=== PATIENT | male | born 1965 | race Caucasian/White ===

== ENCOUNTER 2016-05-08 14:32 | Emergency (ER) | payer MEDICARE ==
--- NOTE | 2016-05-08 14:52 | ER Document Report ---
ED Medical Screen (RME) - General Stated Complaint: LEFT SHOULDER PAIN Notes: 50 yo male c/o left shoulder pain x several months. progressively worsening. strained shoulder yesterday lifting trailer off the hitch. mild numbness and tingling to fingers. pt has hx/o HTN. did not take meds today Physical Exam - Vital signs Vitals: Temp Pulse Resp BP Pulse Ox 98.0 F 57 L 16 181/115 H 98 05/08/16 14:38 05/08/16 14:38 05/08/16 14:38 05/08/16 14:38 05/08/16 14:38 Course - Vital Signs Vital signs: Temp Pulse Resp BP Pulse Ox 98.0 F 57 L 16 181/115 H 98 05/08/16 14:38 05/08/16 14:38 05/08/16 14:38 05/08/16 14:38 05/08/16 14:38
--- NOTE | 2016-05-08 17:25 | ER Document Report ---
HPI - HPI Patient complains to provider of: chronic left shoulder paiin Onset: Yesterday Onset/Duration: Worse Quality of pain: Achy Pain Level: 4 Context: 50 yo male with chronic left shoulder pain (inside) made it worse lifting trailer oneil a hitch yesterday. - DERM Skin Color: Normal Past Medical History - General Information source: Patient - Social History Smoking Status: Never Smoker Frequency of alcohol use: Occasional Drug Abuse: None Lives with: Family Family History: Reviewed & Not Pertinent Patient has suicidal ideation: No Patient has homicidal ideation: No - Medical History Medical History: Negative Renal/ Medical History: Denies: Hx Peritoneal Dialysis Surgical Hx: Negative Vertical Provider Document - CONSTITUTIONAL Agree With Documented VS: Yes Exam Limitations: No Limitations General Appearance: No Apparent Distress - INFECTION CONTROL TRAVEL OUTSIDE OF THE [place] IN LAST 30 DAYS: No - HEENT HEENT: Normocephalic - NECK Neck: Supple - RESPIRATORY Respiratory: Breath Sounds Normal, No Respiratory Distress O2 Sat by Pulse Oximetry: 98 - CARDIOVASCULAR Cardiovascular: Regular Rate, Regular Rhythm - MUSCULOSKELETAL/EXTREMETIES Musculoskeletal/Extremeties: HIRAL, FROM Notes: pt states the pain is deep inside the joint, no place that I can touch. - NEURO Level of Consciousness: Awake, Alert Motor/Sensory: No Motor Deficit, No Sensory Deficit - DERM Integumentary: Warm, Dry, No Rash Course - Re-evaluation Re-evalutation: 05/08/16 xray is negative. - Vital Signs Vital signs: Temp Pulse Resp BP Pulse Ox 98.0 F 57 L 16 181/115 H 98 05/08/16 14:38 05/08/16 14:38 05/08/16 14:38 05/08/16 14:38 05/08/16 14:38 Discharge - Discharge Clinical Impression: left shoulder injury, chronic left shoulder pain, Elevated blood pressure reading Condition: Good Disposition: HOME, SELF-CARE Instructions: Anti-Inflammatory Medication ([facility]), High Blood Pressure ([facility]), Shoulder Injury ([facility]), Temporary Sling ([facility]), Ultram ([facility]), Family Physicians / Practices Additional Instructions: see the orthopedic doctor for follow up to er if worse see family practice doctor for blood pressure recheck in a week Prescriptions: Ibuprofen [Motrin 800 mg Tablet] 800 mg PO Q8HP PRN #30 tablet PRN Reason: Tramadol HCl [Ultram 50 mg Tablet] 50 mg PO ASDIR PRN #20 tablet PRN Reason: Forms: Return to Work Referrals: CHRIS MARINELLI MD [ACTIVE STAFF] - Follow up as needed
[2016-05-08 18:06] VITALS: BP 173/113
== END 2016-05-08 17:50 | disposition home or self-care (01) ==
LOC: ER 14:32
DX: G89.29 Other chronic pain (principal); M25.512 Pain in left shoulder; R03.0 Elevated blood-pressure reading, without diagnosis of hypertension; W22.09XA Striking against other stationary object, initial encounter
CPT/HCPCS: 99283

== ENCOUNTER 2017-02-22 12:34 | Observation (INO) | payer MEDICARE ==
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
[2017-02-22 13:22] LABS: ABSOLUTE EOSINOPHILS # (AUTO) 0.1 10^3/uL (0.0-0.6); ABSOLUTE MONOCYTES (AUTO) 0.4 10^3/uL (0.1-1.4); ABSOLUTE NEUT (AUTO) 3.6 10^3/uL (1.7-8.2); BASOPHILS % (AUTO) 0.4 % (0-2); EOSINOPHILS % (AUTO) 1.5 % (0-6); HEMATOCRIT 39.7 % (37.9-51.0); HEMOGLOBIN 14.1 g/dL (13.5-17.0); HGB HCT DIFFERENCE 2.6; MEAN CORPUSCULAR HEMOGLOBIN 31.1 pg (27.0-33.4); MEAN CORPUSCULAR HGB CONC 35.6 g/dL (32.0-36.0); MEAN CORPUSCULAR VOLUME 87 fl (80-97); MONOCYTES % (AUTO) 8.5 % (3-13); RED BLOOD COUNT 4.55 10^6/uL (4.35-5.55); RED CELL DISTRIBUTION WIDTH 13.6 % (11.5-14.0); SEGMENTED NEUTROPHILS % (AUTO) 70.6 % (42-78); WHITE BLOOD COUNT 5.1 10^3/uL (4.0-10.5)
[2017-02-22] MEDS ORDERED: LIDOCAINE 1% INJ-PF (10 MG/ML) 30 ML SDV INJ ONE (13:36)
[2017-02-22 13:41] LABS: ALANINE AMINOTRANSFERASE 58 U/L (21-72); ALKALINE PHOSPHATASE 99 U/L (38-126); ANION GAP 11 (5-19); ASPARTATE AMINO TRANSFERASE 33 U/L (17-59); BILIRUBIN,DIRECT 0.5 mg/dL (0.0-0.4); BILIRUBIN,TOTAL 1.6 mg/dL (0.2-1.3); BLOOD UREA NITROGEN 19 mg/dL (7-20); CALCIUM 9.8 mg/dL (8.4-10.2); CARBON DIOXIDE 27 mmol/L (22-30); CHLORIDE 103 mmol/L (98-107); CREATINE KINASE 163 U/L (55-170); CREATININE RESULT 1.11 mg/dL (0.52-1.25); GLUCOSE 108 mg/dL (75-110); POTASSIUM 4.2 mmol/L (3.6-5.0); SODIUM 140.9 mmol/L (137-145); TOTAL PROTEIN 6.1 g/dL (6.3-8.2)
[2017-02-22 13:52] LABS: CREATINE KINASE MB 1.54 ng/mL (<4.55)
[2017-02-22 13:54] LABS: TROPONIN I < 0.012 ng/mL
[2017-02-22] MEDS: RINGERS SOLUTION,LACTATED 1,000 ML IV PRN ×2 (13:55→13:56)
[2017-02-22 13:56] LABS: LITHIUM 1.1 mEq/L (0.6-1.2)
[2017-02-22 14:06] LABS: ALCOHOL < 10 mg/dL (NONE DETECTED)
[2017-02-22 14:35] LABS: APPEARANCE,URINE CLEAR; BILIRUBIN,URINE NEGATIVE (NEGATIVE); GLUCOSE, URINE 50 mg/dL (NEGATIVE); KETONES,URINE NEGATIVE (NEGATIVE); LEUKOCYTE ESTERASE,URINE NEGATIVE (NEGATIVE); NITRITE,URINE NEGATIVE (NEGATIVE); PROTEIN,URINE NEGATIVE (NEGATIVE)
--- NOTE | 2017-02-22 14:38 | RADIOLOGY REPORT (SQ) ---
EXAM DESCRIPTION: CT HEAD WITHOUT COMPLETED DATE/TIME: 02/22/2017 2:29 pm REASON FOR STUDY: Syncope and fell and hit back of right head COMPARISON: None. TECHNIQUE: Axial images acquired through the brain without intravenous contrast. Images reviewed wi th bone, brain and subdural windows. Images stored on PACS. All CT scanners at this facility use dose modulation, iterative reconstruction, and/or weight based d osing when appropriate to reduce radiation dose to as low as reasonably achievable (ALARA). [facility]: Dose Right [facility]: CareDose [facility]: Dose Right [facility]: Teradose 4D [facility]: [email or web address] RADIATION DOSE: 64.6 mGy. LIMITATIONS: Motion artifact FINDINGS: VENTRICLES: Normal size and contour. CEREBRUM: No masses. No hemorrhage. No midline shift. No evidence for acute infarction. Normal gra y/white matter differentiation. No areas of low density in the white matter. CEREBELLUM: No masses. No hemorrhage. No alteration of density. No evidence for acute infarction. EXTRAAXIAL SPACES: No fluid collections. No masses. ORBITS AND GLOBE: No intra- or extraconal masses. Normal contour of globe without masses. CALVARIUM: No fracture. PARANASAL SINUSES: No fluid or mucosal thickening. SOFT TISSUES: No mass or hematoma. OTHER: No other significant finding. IMPRESSION: Motion artifact. Limited negative study EVIDENCE OF ACUTE STROKE: NO. COMMENT: Quality ID # 436: Final reports with documentation of one or more dose reduction techniques (e.g., Automated exposure control, adjustment of the mA and/or kV according to patient size, use of iterative reconstruction technique) TECHNICAL DOCUMENTATION: JOB ID: [id number] [employer]- All Rights Reserved
[2017-02-22 14:52] LABS: URINE BARBITURATES SCREEN NEGATIVE; URINE METHADONE SCREEN NEGATIVE; URINE OPIATES LOW NEGATIVE; URINE PHENCYCLIDINE SCREEN NEGATIVE
--- NOTE | 2017-02-22 15:30 | RADIOLOGY REPORT (SQ) ---
EXAM DESCRIPTION: CTA CHEST COMPLETED DATE/TIME: 02/22/2017 2:38 pm REASON FOR STUDY: Syncopal episode, Hx stable aortic aneurysm COMPARISON: None. TECHNIQUE: CT scan of the chest performed using helical scanning technique with dynamic intravenous contrast injection. Images reviewed with lung, soft tissue and bone windows. Reconstructed coronal and sagittal MPR images reviewed. Additional 3 dimensional post-processing performed to develop Maximal Intensity Projection images (CA P). All images stored on PACS. All CT scanners at this facility use dose modulation, iterative reconstruction, and/or weight based d osing when appropriate to reduce radiation dose to as low as reasonably achievable (ALARA). [facility]: Dose Right [facility]: CareDose [facility]: Dose Right [facility]: Teradose 4D [facility]: [employer] CONTRAST TYPE AND DOSE: 87 mL Isovue 370- low osmolar. Contrast bolus optimized for the pulmonary arteries. Suboptimal opacification of the aorta. RENAL FUNCTION: BUN 19 creatinine 1.11. RADIATION DOSE: . LIMITATIONS: None. FINDINGS: LUNGS AND PLEURA: No masses, infiltrates, pneumothorax. No pleural effusions, calcificati ons. AORTA AND GREAT VESSELS: The ascending thoracic aorta measures 4.3 cm. Contrast bolus not optimized for the aorta. HEART: No pericardial effusion. No significant coronary artery calcifications. PULMONARY ARTERIES: No emboli visualized in the main pulmonary arteries or the segmental branches. HILAR AND MEDIASTINAL STRUCTURES: No identified masses or abnormal nodes. HARDWARE: None in the chest. UPPER ABDOMEN: No significant findings. Possible splenomegaly, although the spleen is not entirely i levon. Limited exam. THYROID AND OTHER SOFT TISSUES: No masses. No adenopathy. BONES: No acute or significant finding. 3D MIPS: Confirm above findings. OTHER: No other significant finding. IMPRESSION: 1. NORMAL CTA OF THE CHEST. NO PULMONARY EMBOLI. 2. 4.3 CM ASCENDING THORACIC AORTIC ANEURYSM. NO EVIDENCE OF DISSECTION ALTHOUGH SUBOPTIMAL CONTRAST OPACIFICATION. 3. POSSIBLE SPLENOMEGALY. COMMENT: Quality ID # [id number]: Final reports with documentation of one or more dose reduction techniques (e.g., Automated exposure control, adjustment of the mA and/or kV according to patient size, use of iterative reconstruction technique) TECHNICAL DOCUMENTATION: JOB ID: [id number]- All Rights Reserved
[2017-02-22] MEDS ORDERED: ONDANSETRON HCL INJ/PF 4 MG/2 ML SDV IV PRN (16:14)
[2017-02-22] MEDS ORDERED: RINGERS SOLUTION,LACTATED 1,000 ML IV PRN (16:14)
[2017-02-22] MEDS ORDERED: MAGNESIUM HYDROXIDE SUSP 30 ML UDCUP PO PRN (16:14)
[2017-02-22] MEDS: SIMVASTATIN 40 MG TABLET PO SCH (17:27)
[2017-02-22] MEDS: ACETAMINOPHEN 325 MG TABLET PO PRN (20:38)
[2017-02-22] MEDS ORDERED: ZIPRASIDONE HCL 40 MG CAPSULE PO ONE ×2 (21:33→22:31)
[2017-02-22] MEDS ORDERED: LITHIUM CARBONATE 300 MG CAPSULE ONE (21:34)
[2017-02-22] MEDS: LITHIUM CARBONATE 300 MG CAPSULE PO SCH (21:59)
[2017-02-22] MEDS: TRAZODONE HCL 50 MG TABLET PO SCH (22:00)
[2017-02-22] MEDS: LAMOTRIGINE 100 MG TABLET PO SCH (22:00)
[2017-02-22] MEDS: ZIPRASIDONE HCL 40 MG CAPSULE PO SCH (23:17)
[2017-02-23] MEDS: LANSOPRAZOLE 30 MG TAB.RAP.DR PO SCH (06:18)
--- NOTE | 2017-02-23 09:02 | EKG REPORT ---
SEVERITY:- ABNORMAL ECG - SINUS BRADYCARDIA REPOL ABNRM SUGGESTS ISCHEMIA, ANT-LAT LEADS : Confirmed by: Efrem Murray MD 23-Feb-2017 09:01:57
--- NOTE | 2017-02-23 09:20 | PDOC H&P ---
History of Present Illness Admission Date/PCP: 02/22/17 17:00 Patient complains of: Fainting History of Present Illness: AMELIA JACOB is a 51 year old male with history of HTN, CAD status post 3 stendt 5 years ago, AAA, smoking, bipolar disease who was out biking riding today when he states that he did not feel well. Patient states he stood up and felt dizzy. He state down and felt better. He stood up again and became nauseated and thought he was going to vomit. He walk over in between some cars to vomiting and passed out. Patient injured his head in the process and required stitches. Patient denied and chest pain or SOB when this happened. Patient denied any bouts of vomiting or diarrhea. He does not drink alcohol, soda or coffee. He has not been in warm places. Patient states something like this happened about 10 years ago when he was switched for depakote to lithium. Patient states that he psych medications were increased a week ago. In the ED patient was found to be hypotensive and was given boluses. CT scan did not show anything acute. [place] level was ordered. Past Medical History Cardiac Medical History: Reports: Coronary Artery Disease, Myocardial Infarction , Hyperlipidema, Hypertension, Other - History of a stable aortic aneurysm Neurological Medical History: Denies: Migraine, Seizures Endocrine Medical History: Denies: Diabetes Mellitus Type 1, Diabetes Mellitus Type 2 Musculoskeltal Medical History: Reports: Gout Psychiatric Medical History: Reports: Bipolar Disorder, Depression Past Surgical History Past Surgical History: Reports: Coronary Stent Social History Information Source: Patient Smoking Status: Current Every Day Smoker Cigarettes Packs Per Day: 1 Last Time Smoked: 02/22/2017 Frequency of Alcohol Use: None Hx Recreational Drug Use: No Drugs: None, Marijuana Hx Prescription Drug Abuse: No - Advance Directive Resuscitation Status: Full Code Family History Family History: CAD Parental Family History Reviewed: No Children Family History Reviewed: No Sibling(s) Family History Reviewed.: No Medication/Allergy Home Medications: Allopurinol [Zyloprim] 300 mg PO DAILY 02/22/17 Aspirin [Aspirin] 81 mg PO DAILY 02/22/17 Cholecalciferol (Vitamin D3) [Vitamin D3 400 Unit Tablet] 400 unit PO DAILY 05/10 Dicyclomine HCl 20 mg PO Q8H PRN 02/22/17 Hydroxyzine Pamoate 50 mg PO Q4H PRN 02/22/17 Lamotrigine [Lamotrigine] 150 mg PO BID 02/22/17 Lisinopril [Lisinopril] 40 mg PO DAILY 02/22/17 [place] Carbonate 600 mg PO BID 02/22/17 Metoprolol Succinate 25 mg PO DAILY 02/22/17 Omeprazole 40 mg PO DAILY 02/22/17 Sertraline HCl 100 mg PO DAILY 02/22/17 Simvastatin 40 mg PO QPM 02/22/17 Trazodone HCl 100 mg PO QPM 02/22/17 Vitamin E 400 unit PO DAILY 02/22/17 Ziprasidone HCl [Ziprasidone HCl] 40 mg PO BID 02/22/17 Allergies/Adverse Reactions: Penicillins Allergy (Verified 02/22/17 12:58) Review of Systems Constitutional: ABSENT: chills, fever(s), weight gain, weight loss Eyes: ABSENT: visual disturbances Ears: ABSENT: hearing changes Cardiovascular: ABSENT: chest pain, dyspnea on exertion, edema, orthropnea, palpitations Respiratory: ABSENT: cough, hemoptysis Gastrointestinal: ABSENT: abdominal pain, constipation, diarrhea, hematemesis, hematochezia, nausea, vomiting Genitourinary: ABSENT: dysuria, hematuria Musculoskeletal: ABSENT: joint swelling Integumentary: ABSENT: rash, wounds Neurological: PRESENT: syncope. ABSENT: abnormal gait, abnormal speech, confusion, dizziness, focal weakness Psychiatric: ABSENT: anxiety, depression, homidical ideation, suicidal ideation Endocrine: ABSENT: cold intolerance, heat intolerance, polydipsia, polyuria Hematologic/Lymphatic: ABSENT: easy bleeding, easy bruising Physical Exam Vital Signs: Temp Pulse Resp BP Pulse Ox 96.8 F L 46 L 18 80/43 L 98 02/23/17 04:00 02/23/17 07:00 02/23/17 04:00 02/23/17 04:00 02/23/17 04:00 Intake & Output 02/22/17 02/23/17 02/24/17 06:59 06:59 06:59 Intake Total 980 Balance 980 Weight 101.9 kg General appearance: PRESENT: no acute distress, well-developed, well-nourished Head exam: PRESENT: normocephalic, other - dressing on scalp Eye exam: PRESENT: conjunctiva pink, EOMI, PERRLA. ABSENT: scleral icterus Ear exam: PRESENT: normal external ear exam Mouth exam: PRESENT: moist, tongue midline Neck exam: ABSENT: carotid bruit, JVD, lymphadenopathy, thyromegaly Respiratory exam: PRESENT: clear to auscultation alma delia. ABSENT: rales, rhonchi, wheezes Cardiovascular exam: PRESENT: RRR. ABSENT: diastolic murmur, rubs, systolic murmur Pulses: PRESENT: normal dorsalis pedis pul Vascular exam: PRESENT: normal capillary refill GI/Abdominal exam: PRESENT: normal bowel sounds, soft. ABSENT: distended, guarding, mass, organolmegaly, rebound, tenderness Rectal exam: PRESENT: deferred Extremities exam: PRESENT: full ROM. ABSENT: calf tenderness, clubbing, pedal edema Neurological exam: PRESENT: alert, awake, oriented to person, oriented to place , oriented to time, oriented to situation, CN II-XII grossly intact. ABSENT: motor sensory deficit Psychiatric exam: PRESENT: appropriate affect, normal mood. ABSENT: homicidal ideation, suicidal ideation Skin exam: PRESENT: dry, intact, warm. ABSENT: cyanosis, rash Results Impressions: Chest/Abdomen CTA 02/22/17 13:31 IMPRESSION: 1. NORMAL CTA OF THE CHEST. NO PULMONARY EMBOLI. 2. 4.3 CM ASCENDING THORACIC AORTIC ANEURYSM. NO EVIDENCE OF DISSECTION ALTHOUGH SUBOPTIMAL CONTRAST OPACIFICATION. 3. POSSIBLE SPLENOMEGALY. Head CT 02/22/17 13:31 IMPRESSION: Motion artifact. Limited negative study EVIDENCE OF ACUTE STROKE: NO. Assessment & Plan - Diagnosis (1) Syncope Qualifiers: Syncope type: vasovagal syncope Qualified Code(s): R55 - Syncope and collapse Is this a current diagnosis for this admission?: Yes Plan: Most likely due to hypotension and or side effects of psychiatric medications. Both lithium and zoloft and cause fainting. Both can cause hypotension and bradycardia. Patient states that his zoloft was increase last week. If patient much be on this medication then he may need to start florinef to prevent symptomatic hypotension. Will continue IV fluids and check orthostatics. No abnormality on CT head. No seizure like activity noted by bystanders. (2) Hypotension Qualifiers: Hypotension type: hypotension due to drug Qualified Code(s): I95.2 - Hypotension due to drugs Is this a current diagnosis for this admission?: Yes Plan: Patient on zoloft (increased last week), lithium, metoprolol and lisinopril which can all cause hypotension. Will hold all bp medication, hydrate and monitor. Patient may need to started on florinef if symptoms persist and his psych medications cannot be adjusted. (3) Bradycardia Is this a current diagnosis for this admission?: Yes Plan: Can be due to metoprolol and the use of lithium and zoloft. Paitent metoprolol being held as patient bp are in the 40s at times. (4) CAD (coronary artery disease) Qualifiers: Coronary Disease-Associated Artery/Lesion type: [place] artery Is this a current diagnosis for this admission?: Yes Plan: Continue aspirin. Hold beta kaushik due to bradycardia. (5) Laceration of scalp Qualifiers: Encounter type: initial encounter Qualified Code(s): S01.01XA - Laceration without foreign body of scalp, initial encounter Is this a current diagnosis for this admission?: Yes Plan: As a result of a fall. Should be able to remove sutures in 10 days. - Time Time Spent: 30 to 50 Minutes Anticipated discharge: Home Within: within 48 hours - Inpatient Certification Medical Necessity: Need For IV Fluids
[2017-02-23] MEDS: ALLOPURINOL 300 MG TABLET PO SCH (11:47)
[2017-02-23] MEDS: ASPIRIN 81 MG TABLET, CHEWABLE PO SCH (11:47)
[2017-02-23] MEDS: LAMOTRIGINE 100 MG TABLET PO SCH ×2 (11:48→21:55)
[2017-02-23] MEDS: CHOLECALCIFEROL (D3) 400 UNIT TABLET PO SCH (11:48)
[2017-02-23] MEDS: SERTRALINE HCL 50 MG TABLET PO SCH (11:49)
[2017-02-23] MEDS: LITHIUM CARBONATE 300 MG CAPSULE PO SCH ×2 (11:49→21:55)
[2017-02-23] MEDS: VITAMIN E (DL, ACETATE) 400 UNIT CAPSULE PO SCH (11:50)
[2017-02-23] MEDS: ZIPRASIDONE HCL 40 MG CAPSULE PO SCH (11:51)
--- NOTE | 2017-02-23 16:10 | PDOC PROGRESS REPORT ---
Subjective Progress Note for:: 02/23/17 Subjective:: Pt states that he is feeling much better. Nursing states that pt's sister reports that his Geodon dose was increased from 20 mg to 40 mg. Pt states that that is true. Reason For Visit: SYNCOPE SCALP LACERATION Physical Exam Vital Signs: Temp Pulse Resp BP Pulse Ox 97.9 F 59 L 16 129/70 H 99 02/23/17 11:58 02/23/17 14:00 02/23/17 11:58 02/23/17 11:58 02/23/17 11:58 Intake & Output 02/22/17 02/23/17 02/24/17 06:59 06:59 06:59 Intake Total 980 Balance 980 Weight 101.9 kg General appearance: PRESENT: no acute distress, well-developed, well-nourished Head exam: PRESENT: atraumatic, normocephalic Eye exam: PRESENT: conjunctiva pink, EOMI, PERRLA. ABSENT: scleral icterus Ear exam: PRESENT: normal external ear exam Mouth exam: PRESENT: moist, tongue midline Neck exam: ABSENT: carotid bruit, JVD, lymphadenopathy, thyromegaly Respiratory exam: PRESENT: clear to auscultation alma delia. ABSENT: rales, rhonchi, wheezes Cardiovascular exam: PRESENT: RRR. ABSENT: diastolic murmur, rubs, systolic murmur Pulses: PRESENT: normal dorsalis pedis pul Vascular exam: PRESENT: normal capillary refill GI/Abdominal exam: PRESENT: normal bowel sounds, soft. ABSENT: distended, guarding, mass, organolmegaly, rebound, tenderness Rectal exam: PRESENT: deferred Extremities exam: PRESENT: full ROM. ABSENT: calf tenderness, clubbing, pedal edema Neurological exam: PRESENT: alert, awake, oriented to person, oriented to place , oriented to time, oriented to situation, CN II-XII grossly intact. ABSENT: motor sensory deficit Psychiatric exam: PRESENT: appropriate affect, normal mood. ABSENT: homicidal ideation, suicidal ideation Skin exam: PRESENT: dry, intact, warm. ABSENT: cyanosis, rash Results Impressions: Chest/Abdomen CTA 02/22/17 13:31 IMPRESSION: 1. NORMAL CTA OF THE CHEST. NO PULMONARY EMBOLI. 2. 4.3 CM ASCENDING THORACIC AORTIC ANEURYSM. NO EVIDENCE OF DISSECTION ALTHOUGH SUBOPTIMAL CONTRAST OPACIFICATION. 3. POSSIBLE SPLENOMEGALY. Head CT 02/22/17 13:31 IMPRESSION: Motion artifact. Limited negative study EVIDENCE OF ACUTE STROKE: NO. Assessment & Plan - Diagnosis (1) Syncope Qualifiers: Syncope type: vasovagal syncope Qualified Code(s): R55 - Syncope and collapse Is this a current diagnosis for this admission?: Yes Plan: Most likely due to Hypotension related to BP medications and Psych medications: Will continue IVFs. Pt has been up ambulating in the hallway. Will continue to monitor. (2) Bradycardia Is this a current diagnosis for this admission?: Yes Plan: Will continue to monitor. Metoprolol discontinued. (3) CAD (coronary artery disease) Qualifiers: Coronary Disease-Associated Artery/Lesion type: [place] artery Is this a current diagnosis for this admission?: Yes Plan: Will continue ASA. (4) Hypotension Qualifiers: Hypotension type: hypotension due to drug Qualified Code(s): I95.2 - Hypotension due to drugs Is this a current diagnosis for this admission?: Yes Plan: Secondary to Blood pressure medication and psych medication: Will continue to monitor. (5) Laceration of scalp Qualifiers: Encounter type: initial encounter Qualified Code(s): S01.01XA - Laceration without foreign body of scalp, initial encounter Is this a current diagnosis for this admission?: Yes Plan: Sutures removal after 10 days. (6) Bipolar 1 disorder Is this a current diagnosis for this admission?: Yes Plan: Will have mental health come to evaluate pt's medications. - Time Time Spent with patient: 15-24 minutes
[2017-02-23] MEDS: SIMVASTATIN 40 MG TABLET PO SCH (18:01)
[2017-02-23] MEDS: TRAZODONE HCL 50 MG TABLET PO SCH (21:54)
[2017-02-23] MEDS: RINGERS SOLUTION,LACTATED 1,000 ML IV PRN (21:57)
[2017-02-24 04:56] LABS: ABSOLUTE EOSINOPHILS # (AUTO) 0.2 10^3/uL (0.0-0.6); ABSOLUTE LYMPHOCYTES (AUTO) 1.7 10^3/uL (0.5-4.7); ABSOLUTE MONOCYTES (AUTO) 0.4 10^3/uL (0.1-1.4); BASOPHILS % (AUTO) 0.7 % (0-2); EOSINOPHILS % (AUTO) 2.7 % (0-6); HEMOGLOBIN 13.4 g/dL (13.5-17.0); HGB HCT DIFFERENCE 2.2; LYMPHOCYTES % (AUTO) 27.4 % (13-45); MEAN CORPUSCULAR HGB CONC 35.3 g/dL (32.0-36.0); MEAN CORPUSCULAR VOLUME 88 fl (80-97); MONOCYTES % (AUTO) 6.2 % (3-13); RED BLOOD COUNT 4.32 10^6/uL (4.35-5.55); RED CELL DISTRIBUTION WIDTH 13.7 % (11.5-14.0); WHITE BLOOD COUNT 6.4 10^3/uL (4.0-10.5)
[2017-02-24 05:12] LABS: ANION GAP 8 (5-19); BLOOD UREA NITROGEN 16 mg/dL (7-20); CARBON DIOXIDE 26 mmol/L (22-30); CHLORIDE 107 mmol/L (98-107); CREATININE RESULT 0.99 mg/dL (0.52-1.25); GLUCOSE 97 mg/dL (75-110); POTASSIUM 3.9 mmol/L (3.6-5.0); SODIUM 140.7 mmol/L (137-145)
[2017-02-24] MEDS: LANSOPRAZOLE 30 MG TAB.RAP.DR PO SCH (05:27)
[2017-02-24] MEDS: ACETAMINOPHEN 325 MG TABLET PO PRN (05:29)
[2017-02-24] MEDS: LAMOTRIGINE 100 MG TABLET PO SCH ×2 (09:55→21:58)
[2017-02-24] MEDS: ALLOPURINOL 300 MG TABLET PO SCH (09:55)
[2017-02-24] MEDS: VITAMIN E (DL, ACETATE) 400 UNIT CAPSULE PO SCH (09:56)
[2017-02-24] MEDS: SERTRALINE HCL 50 MG TABLET PO SCH (09:56)
[2017-02-24] MEDS: CHOLECALCIFEROL (D3) 400 UNIT TABLET PO SCH (09:56)
[2017-02-24] MEDS: ASPIRIN 81 MG TABLET, CHEWABLE PO SCH (09:56)
[2017-02-24] MEDS: RINGERS SOLUTION,LACTATED 1,000 ML IV PRN (09:57)
[2017-02-24] MEDS: LITHIUM CARBONATE 300 MG CAPSULE PO SCH ×2 (09:57→21:59)
[2017-02-24] MEDS: SIMVASTATIN 40 MG TABLET PO SCH (17:13)
--- NOTE | 2017-02-24 17:49 | PDOC PROGRESS REPORT ---
Subjective Progress Note for:: 02/24/17 Subjective:: Pt states that he is feeling better. Pt states that he has not been dizzy. Reason For Visit: SYNCOPE SCALP LACERATION Physical Exam Vital Signs: Temp Pulse Resp BP Pulse Ox 97.7 F 50 L 16 154/95 H 100 02/24/17 15:39 02/24/17 15:39 02/24/17 15:39 02/24/17 15:39 02/24/17 15:39 Intake & Output 02/23/17 02/24/17 02/25/17 06:59 06:59 06:59 Intake Total 980 3802 Output Total 1200 Balance 980 2602 Weight 101.9 kg 102.3 kg General appearance: PRESENT: no acute distress, well-developed, well-nourished Head exam: PRESENT: atraumatic, normocephalic Eye exam: PRESENT: conjunctiva pink, EOMI, PERRLA. ABSENT: scleral icterus Ear exam: PRESENT: normal external ear exam Mouth exam: PRESENT: moist, tongue midline Neck exam: ABSENT: carotid bruit, JVD, lymphadenopathy, thyromegaly Respiratory exam: PRESENT: clear to auscultation alma delia. ABSENT: rales, rhonchi, wheezes Cardiovascular exam: PRESENT: RRR. ABSENT: diastolic murmur, rubs, systolic murmur Pulses: PRESENT: normal dorsalis pedis pul Vascular exam: PRESENT: normal capillary refill GI/Abdominal exam: PRESENT: normal bowel sounds, soft. ABSENT: distended, guarding, mass, organolmegaly, rebound, tenderness Rectal exam: PRESENT: deferred Extremities exam: PRESENT: full ROM. ABSENT: calf tenderness, clubbing, pedal edema Neurological exam: PRESENT: alert, awake, oriented to person, oriented to place , oriented to time, oriented to situation, CN II-XII grossly intact. ABSENT: motor sensory deficit Psychiatric exam: PRESENT: appropriate affect, normal mood. ABSENT: homicidal ideation, suicidal ideation Skin exam: PRESENT: dry, intact, warm. ABSENT: cyanosis, rash Results Laboratory Results: 02/24/17 04:38 02/24/17 04:38 02/24/17 02/24/17 04:38 04:38 WBC 6.4 RBC 4.32 L Hgb 13.4 L Hct 38.0 MCV 88 MCH 31.0 MCHC 35.3 RDW 13.7 Plt Count 113 L Seg Neutrophils % 63.0 Lymphocytes % 27.4 Monocytes % 6.2 Eosinophils % 2.7 Basophils % 0.7 Absolute Neutrophils 4.0 Absolute Lymphocytes 1.7 Absolute Monocytes 0.4 Absolute Eosinophils 0.2 Absolute Basophils 0.0 Sodium 140.7 Potassium 3.9 Chloride 107 Carbon Dioxide 26 Anion Gap 8 BUN 16 Creatinine 0.99 Est GFR ( Amer) > 60 Est GFR (Non-Af Amer) > 60 Glucose 97 Calcium 9.0 Impressions: Chest/Abdomen CTA 02/22/17 13:31 IMPRESSION: 1. NORMAL CTA OF THE CHEST. NO PULMONARY EMBOLI. 2. 4.3 CM ASCENDING THORACIC AORTIC ANEURYSM. NO EVIDENCE OF DISSECTION ALTHOUGH SUBOPTIMAL CONTRAST OPACIFICATION. 3. POSSIBLE SPLENOMEGALY. Head CT 02/22/17 13:31 IMPRESSION: Motion artifact. Limited negative study EVIDENCE OF ACUTE STROKE: NO. Assessment & Plan - Diagnosis (1) Hypertension Qualifiers: Hypertension type: essential hypertension Qualified Code(s): I10 - Essential (primary) hypertension Is this a current diagnosis for this admission?: Yes Plan: Will place pt on [facility]. (2) Syncope Qualifiers: Syncope type: vasovagal syncope Qualified Code(s): R55 - Syncope and collapse Is this a current diagnosis for this admission?: Yes Plan: Most likely due to Hypotension related to BP medications and Psych medications: Resolved. Will stop IVFs. (3) Bradycardia Is this a current diagnosis for this admission?: Yes Plan: Will continue to monitor. Metoprolol discontinued. Pt currently asymptomatic. (4) CAD (coronary artery disease) Qualifiers: Coronary Disease-Associated Artery/Lesion type: [place] artery Is this a current diagnosis for this admission?: Yes Plan: Will continue ASA. (5) Hypotension Qualifiers: Hypotension type: hypotension due to drug Qualified Code(s): I95.2 - Hypotension due to drugs Is this a current diagnosis for this admission?: Yes Plan: Secondary to Blood pressure medication and psych medication: Resolved. Will continue to monitor. (6) Laceration of scalp Qualifiers: Encounter type: initial encounter Qualified Code(s): S01.01XA - Laceration without foreign body of scalp, initial encounter Is this a current diagnosis for this admission?: Yes Plan: Sutures removal after 10 days. (7) Bipolar 1 disorder Is this a current diagnosis for this admission?: Yes Plan: Mental Health recommends decreasing Geodon 20 mg BID. Trazodone and Ziprasidone discontinued.
[2017-02-24] MEDS ORDERED: ZIPRASIDONE HCL 20 MG CAPSULE PO SCH (18:00)
[2017-02-24] MEDS ORDERED: AMLODIPINE BESYLATE 5 MG TABLET PO ONE (18:30)
[2017-02-24] MEDS: ZIPRASIDONE HCL 20 MG CAPSULE PO SCH (21:59)
[2017-02-25] MEDS: LANSOPRAZOLE 30 MG TAB.RAP.DR PO SCH (05:42)
[2017-02-25 05:55] LABS: ANION GAP 13 (5-19); BLOOD UREA NITROGEN 15 mg/dL (7-20); CALCIUM 9.4 mg/dL (8.4-10.2); CARBON DIOXIDE 23 mmol/L (22-30); CHLORIDE 104 mmol/L (98-107); GLUCOSE 90 mg/dL (75-110); POTASSIUM 4.2 mmol/L (3.6-5.0)
[2017-02-25] MEDS ORDERED: AMLODIPINE BESYLATE 5 MG TABLET PO SCH (10:00)
[2017-02-25] MEDS: ASPIRIN 81 MG TABLET, CHEWABLE PO SCH (10:05)
[2017-02-25] MEDS: LAMOTRIGINE 100 MG TABLET PO SCH (10:05)
[2017-02-25] MEDS: SERTRALINE HCL 50 MG TABLET PO SCH (10:05)
[2017-02-25] MEDS: ALLOPURINOL 300 MG TABLET PO SCH (10:06)
[2017-02-25] MEDS: CHOLECALCIFEROL (D3) 400 UNIT TABLET PO SCH (10:07)
[2017-02-25] MEDS: VITAMIN E (DL, ACETATE) 400 UNIT CAPSULE PO SCH (10:07)
[2017-02-25] MEDS: ZIPRASIDONE HCL 20 MG CAPSULE PO SCH (10:07)
[2017-02-25] MEDS: LITHIUM CARBONATE 300 MG CAPSULE PO SCH (10:07)
[2017-02-25] MEDS ORDERED: HYDRALAZINE HCL 25 MG TABLET PO SCH (14:00)
[2017-02-25] MEDS: SIMVASTATIN 40 MG TABLET PO SCH (17:06)
--- NOTE | 2017-02-25 17:25 | PDOC DISCHARGE SUMMARY ---
General - Admit/Disc Date/PCP Admission Date/Primary Care Provider: 02/22/17 17:00 Out-of-town Discharge Date: 02/25/17 - Discharge Diagnosis (1) Syncope Is this a current diagnosis for this admission?: Yes Summary: Secondary to hypotension and bradycardia. His metoprolol has been stopped. His hypotension has totally resolved. (2) Bradycardia Is this a current diagnosis for this admission?: Yes Summary: Heart rates are still on the low side. His metoprolol and lisinopril have been stopped. (3) Hypotension Is this a current diagnosis for this admission?: Yes Summary: The patient was initially hypotensive. His metoprolol and lisinopril were held. He then became quite hypertensive. He has been started back on amlodipine and low-dose hydralazine. His blood pressure is stable at the time of discharge. I tried to get the patient to stay in the hospital for an additional day but he did not wish to do this. (4) Hypertension Is this a current diagnosis for this admission?: Yes Summary: Stable at the time of discharge on milligrams of amlodipine and 25 mg of hydralazine every 8 hours. His blood pressure is doing well at the time of discharge. He declined to stay in the hospital another night. (5) CAD (coronary artery disease) Is this a current diagnosis for this admission?: Yes Summary: He will resume his home regimen of medications (6) Laceration of scalp Is this a current diagnosis for this admission?: Yes Summary: Continue local wound care (7) Bipolar 1 disorder Is this a current diagnosis for this admission?: Yes Summary: He will continue his home regimen of lithium. (8) Elevated liver function tests Summary: He is to see his doctor when he returns home. He is traveling to this area. These are of undetermined significance at this point. - Additional Information Resuscitation Status: Full Code Discharge Diet: Cardiac Discharge Activity: Activity As Tolerated, Balance Activity w/Rest, Slowly Increase Activity Home Medications: Allopurinol [Zyloprim] 300 mg PO DAILY 02/22/17 Aspirin 81 mg PO DAILY 02/22/17 Cholecalciferol (Vitamin D3) [Vitamin D3 400 Unit Tablet] 400 unit PO DAILY 05/10 Lamotrigine 150 mg PO Q12 02/22/17 [place] Carbonate 600 mg PO Q12 02/22/17 Sertraline HCl 150 mg PO DAILY 02/22/17 Trazodone HCl 100 mg PO QPM 02/22/17 Vitamin E 400 unit PO DAILY 02/22/17 Atorvastatin Calcium [Lipitor 40 mg Tablet] 40 mg PO QHS 02/24/17 Lorazepam [Ativan 0.5 mg Tablet] 0.5 mg PO DAILYP PRN 02/24/17 Pantoprazole Sodium [Protonix] 40 mg PO DAILY 02/24/17 Amlodipine Besylate [Norvasc 5 mg Tablet] 5 mg PO DAILY #30 tablet 02/25/17 Hydralazine HCl [Apresoline 25 mg Tablet] 25 mg PO Q8 #90 tablet 02/25/17 Ziprasidone HCl [Geodon 20 mg Capsule] 20 mg PO Q12 capsule 02/25/17 History of Present Illness History of Present Illness: AMELIA JACOB is a 51 year old male who presented to the hospital after having a syncopal episode. Hospital Course Hospital Course: He was found to be hypotensive and was given fluid boluses in the emergency room. He also had rather significant bradycardia. He did have a laceration to his head. A CT scan of the brain did not reveal any acute findings or bleed. He was admitted to the hospital. His metoprolol and lisinopril were stopped. He subsequently developed rather severe hypertension. He was started back on amlodipine. Earlier today the patient was still having markedly uncontrolled blood pressures. He was threatening quite anxious to leave the hospital but did not want to leave AGAINST MEDICAL ADVICE. He was started on low-dose p.o. hydralazine and this afternoon his blood pressure is doing much better. He really does not want to spend another night in the hospital and promises to go follow-up with his primary care physician when he returns home from his vacation. At this point maximum hospital benefits been reached. The patient will be sent out on amlodipine and hydralazine. He will follow-up as soon as he returns home. Physical Exam Vital Signs: Temp Pulse Resp BP Pulse Ox 97.6 F 49 L 16 133/77 H 98 02/25/17 15:20 02/25/17 15:20 02/25/17 15:20 02/25/17 15:20 02/25/17 15:20 Intake & Output 02/24/17 02/25/17 02/26/17 06:59 06:59 06:59 Intake Total 3802 3175 960 Output Total 1200 Balance 2602 3175 960 Weight 102.3 kg 100 kg General appearance: PRESENT: no acute distress, well-developed, well-nourished Head exam: PRESENT: atraumatic, normocephalic Eye exam: PRESENT: conjunctiva pink, EOMI, PERRLA. ABSENT: scleral icterus Mouth exam: PRESENT: moist, tongue midline Neck exam: ABSENT: carotid bruit, JVD, lymphadenopathy, thyromegaly Respiratory exam: PRESENT: clear to auscultation alma delia. ABSENT: rales, rhonchi, wheezes Cardiovascular exam: PRESENT: bradycardia, other - With a regular rhythm GI/Abdominal exam: PRESENT: normal bowel sounds, soft. ABSENT: distended, guarding, mass, organolmegaly, rebound, tenderness Rectal exam: PRESENT: deferred Extremities exam: PRESENT: full ROM. ABSENT: calf tenderness, clubbing, pedal edema Musculoskeletal exam: PRESENT: ambulatory Neurological exam: PRESENT: alert, awake, oriented to person, oriented to place , oriented to time, oriented to situation, CN II-XII grossly intact. ABSENT: motor sensory deficit Psychiatric exam: PRESENT: appropriate affect, normal mood. ABSENT: homicidal ideation, suicidal ideation Skin exam: PRESENT: dry, intact, warm. ABSENT: cyanosis, rash Results Laboratory Results: 02/24/17 04:38 02/25/17 04:52 02/25/17 04:52 Sodium 140.0 Potassium 4.2 Chloride 104 Carbon Dioxide 23 Anion Gap 13 BUN 15 Creatinine 0.90 Est GFR ( Amer) > 60 Est GFR (Non-Af Amer) > 60 Glucose 90 Calcium 9.4 Impressions: Chest/Abdomen CTA 02/22/17 13:31 IMPRESSION: 1. NORMAL CTA OF THE CHEST. NO PULMONARY EMBOLI. 2. 4.3 CM ASCENDING THORACIC AORTIC ANEURYSM. NO EVIDENCE OF DISSECTION ALTHOUGH SUBOPTIMAL CONTRAST OPACIFICATION. 3. POSSIBLE SPLENOMEGALY. Head CT 02/22/17 13:31 IMPRESSION: Motion artifact. Limited negative study EVIDENCE OF ACUTE STROKE: NO. Qualifiers PATEINT BEING DISCHARGED WITH ANY OF THE FOLLOWING DIAGNOSIS?: No Plan Discharge Plan: The patient will be discharged home today in stable condition. He will follow- up with his primary care physician when he returns home. Time Spent: Greater than 30 Minutes
--- NOTE | 2017-02-25 17:57 | PSYCHOLOGICAL NOTE ---
Psych Note - Psych Note Psych Note: Patient is a 51 year old male who is admitted to hospitalist services due to Syncope. A psychiatric consult was ordered due to patient having recent Bipolar medication increases and concern this is what is contributing to the Syncope. Conducted chart review last evening with Dr. Mcdonnell and coordinated with attending hospitalist on holding night Geodon dose to see of BP decreases. Patient identified his Zoloft and Geodon doses were increased (doubled) 2-3 weeks ago as a result of his increased depression. He stated the increase in medication dosages did address his depression. He reported the Vistaril was a PRN medication that he doesn't really take. He stated he resides in [place], [place], however comes to stay in [place] often. He reported he has been in [place] since December. He stated his outpatient provider is Tatyana Rios at [facility] in [place], [place]. He admitted to previous hospitalizations, most recent one was 2.5 years ago. He denied any seizure disorder and stated most of the medications are for mood. He reported his plan was to return to [place], [place] on 03/15/2017. Patient denied SI/HI and stated he has never had hallucinations. Patient was oriented to person, place, time and situation. Mood was euthymic with congruent affect. He denied SI/HI and these were not presenting concerns. He did not appear to be responding to internal stimuli AEB fair eye contact and ability to carry on dialogue conversation. Thought processes were organized and linear. Conversational speech was WNL for rate, tone and prosody. Intellectual abilities are estimated to be average. Insight, judgment and impulse control are fair AEB being in [place] while having increased depression and going back to [place], [place] breana see provider in order to address the depression. Attending nurse noted patient's BP was still high and HR still in the 40's. She stated patient informed her his HR tends to be lower. She stated the anniversary of patient's father's is at the beginning of January so he comes to [place] to get away from reminders. Diagnosis: 296.80 (F32.9) Unspecified Bipolar and Related Disorder by History Impression/Plan: Recommendations include agreement with attending hospitalist that the recent increase in Bipolar medication dosages likely elevated patient' s blood pressure. Suggestions and recommendations were provided regarding dosage of Geodon to try to decrease BP. Patient encouraged to return to [place], [place] to see his outpatient provider sooner than 03/15/2017 which he said he would do. Patient provided with outpatient resource list for local agencies with emphasis on [facility] for walk in outpatient care here if he decided to stay. Consulted with Dr. Mcdonnell regarding the management and care of patient. Attending hospitalist aware of recommendations.
[2017-02-25 17:58] VITALS: BP 118/69
== END 2017-02-25 18:35 | disposition home or self-care (01) ==
LOC: ER 12:34 → EH 17:00 → 4W 20:15
PROVIDERS: ADMIT Family Medicine; ATTEND Family Medicine
PROC: 0HQ0XZZ Repair Scalp Skin, External Approach (ICD-10-PCS; principal; 2017-02-22)
DX: R55 Syncope and collapse (principal); R00.1 Bradycardia, unspecified; I95.2 Hypotension due to drugs; T50.995A Adverse effect of other drugs, medicaments and biological substances, initial encounter; I10 Essential (primary) hypertension; I25.10 Atherosclerotic heart disease of native coronary artery without angina pectoris; S01.01XA Laceration without foreign body of scalp, initial encounter; W19.XXXA Unspecified fall, initial encounter; F31.9 Bipolar disorder, unspecified; R79.89 Other specified abnormal findings of blood chemistry; F17.210 Nicotine dependence, cigarettes, uncomplicated; I71.2 Thoracic aortic aneurysm, without rupture; M10.9 Gout, unspecified; I25.2 Old myocardial infarction; Z95.5 Presence of coronary angioplasty implant and graft; Z82.49 Family history of ischemic heart disease and other diseases of the circulatory system
CPT/HCPCS: 93005; 99285; 96365; 96366; 36415 ×3; 82553; 80307 ×2; 82550; 80178; 85025 ×2; 80048 ×2; 80053; 81001; 84484; 70450; 71275; 93010; 12002; A9270 ×35; J3490 ×7; J7120 ×3

== ENCOUNTER 2017-03-05 16:14 | Emergency (ER) | payer MEDICARE ==
[2017-03-05 16:33] VITALS: BP 143/92
--- NOTE | 2017-03-05 18:13 | ER Document Report ---
ED Suture/Wound Recheck - General Chief Complaint: Suture Removal Stated Complaint: STITCHES REMOVAL Time Seen by Provider: 03/05/17 18:06 Mode of Arrival: Ambulatory Information source: Patient, [facility] Records Notes: Patient had stents put in approximately a week ago and top portion of his head right side posteriorly. Patient states everything is going fine he has no problems and it appear to be healing well. She had 5 sutures placed that day. TRAVEL OUTSIDE OF THE [place] IN LAST 30 DAYS: No - HPI Patient complains to provider of: Suture removal Previous ED treatment: Laceration repair Quality of pain: No pain Severity: None Pain Level: 0 Context: Injury Symptoms since procedure: No complaints Exacerbated by: Denies Relieved by: Denies - Related Data Allergies/Adverse Reactions: Penicillins Allergy (Verified 03/05/17 16:23) Past Medical History - Social History Smoking Status: Never Smoker Cigarette use (# per day): No Chew tobacco use (# tins/day): No Smoking Education Provided: No Frequency of alcohol use: None Drug Abuse: None Family History: CAD Patient has suicidal ideation: No Patient has homicidal ideation: No - Past Medical History Cardiac Medical History: Reports: Hx Coronary Artery Disease, Hx Heart Attack, Hx Hypercholesterolemia, Hx Hypertension Neurological Medical History: Denies: Hx Cerebrovascular Accident, Hx Migraine, Hx Seizures Endocrine Medical History: Denies: Hx Diabetes Mellitus Type 1, Hx Diabetes Mellitus Type 2 Renal/ Medical History: Denies: Hx Peritoneal Dialysis Musculoskeltal Medical History: Reports Hx Gout Psychiatric Medical History: Reports: Hx Bipolar Disorder, Hx Depression Past Surgical History: Reports: Hx Coronary Stent Review of Systems - Review of Systems Constitutional: No symptoms reported EENT: No symptoms reported Cardiovascular: No symptoms reported Respiratory: No symptoms reported Gastrointestinal: No symptoms reported Genitourinary: No symptoms reported Male Genitourinary: No symptoms reported Musculoskeletal: No symptoms reported Skin: See HPI Hematologic/Lymphatic: No symptoms reported Neurological/Psychological: No symptoms reported Physical Exam - Vital signs Vitals: Temp Pulse Resp BP Pulse Ox 98.5 F 61 16 143/92 H 95 03/05/17 16:32 03/05/17 16:32 03/05/17 16:32 03/05/17 16:32 03/05/17 16:32 Interpretation: Hypertensive - General General appearance: Appears well - Respiratory Chest status: Nontender Breath sounds: Normal. No: Decreased air movement, Nonproductive cough, Productive cough, Rales, Rhonchi, Stridor, Wheezing, Other - Neurological Neuro grossly intact: Yes Cognition: Normal Orientation: AAOx4, Disoriented to time Swetha Coma Scale Eye Opening: Spontaneous Pe Ell Coma Scale Verbal: Oriented Pe Ell Coma Scale Motor: Obeys Commands Pe Ell Coma Scale Total: 15 Speech: Normal - Skin Skin Temperature: Warm Skin Moisture: Dry Skin Color: Normal, [place], Other - Examination of the suture site which is on the right occipital area shows 5 sutures that are well-healing no erythema noted no sign of infection the approximation was spot on can barely tell that there was a suture placed. Course - Vital Signs Vital signs: Temp Pulse Resp BP Pulse Ox 98.5 F 61 16 143/92 H 95 03/05/17 16:32 03/05/17 16:32 03/05/17 16:32 03/05/17 16:32 03/05/17 16:32 Discharge - Discharge Clinical Impression: Visit for suture removal Condition: Good Disposition: HOME, SELF-CARE Instructions: Suture Removal Additional Instructions: Starting tomorrow you can resume activity is normal shower as normal. Just like to be careful since we pulled sutures out that opens holes up for a limited very small amount of time keep a clean dry tonight activity as tolerated tomorrow. Forms: Elevated Blood Pressure
== END 2017-03-05 18:31 | disposition home or self-care (01) ==
LOC: ER 16:14
DX: Z48.02 Encounter for removal of sutures (principal)